=== PATIENT | male | born 1990 | race African-American/Black ===

== ENCOUNTER 2023-07-17 13:23 | Emergency (ER) | payer OTHER ==
[~2023-07-17] VITALS: Ht 190.5 cm; Wt 97.3 kg
[2023-07-17 13:32] VITALS: TEMP 97.3
[2023-07-17] MEDS: diazePAM 10MG/2ML SYRINGE IV ONE (14:24)
[2023-07-17] MEDS: KETOROLAC 30 MG/ML 1ML VIAL IV ONE (14:24)
[2023-07-17] MEDS ORDERED: CYCL5TAB PO (14:34)
[2023-07-17 15:45] VITALS: BP 116/69; O2SAT 98
== END 2023-07-17 16:21 | disposition home or self-care (01) ==
LOC: EDBD 13:23 → M ED 13:23
DX: M54.9 Dorsalgia, unspecified (principal)
CPT/HCPCS: 71046; 93005; 96374; 96375; 99284; J1885; J3360

== ENCOUNTER 2023-11-11 05:44 | Emergency (ER) | payer OTHER ==
[~2023-11-11] VITALS: Ht 190.5 cm; Wt 107.8 kg
[~2023-11-11 05:44] MED LIST: CYCL5TAB PO
[2023-11-11 05:45] VITALS: BP 135/76; TEMP 97.3; O2SAT 99
[2023-11-11] MEDS ORDERED: CETI-24 PO (07:22)
[2023-11-11] MEDS: CETIRIZINE (ZyrTEC) 10 MG TAB PO ONE (07:29)
[2023-11-11] MEDS: IBUPROFEN 800 MG TAB PO ONE (07:29)
== END 2023-11-11 07:34 | disposition home or self-care (01) ==
LOC: M ED 05:44
DX: H01.002 Unspecified blepharitis right lower eyelid (principal)

== ENCOUNTER 2024-02-04 05:42 | Emergency (ER) | payer OTHER ==
[~2024-02-04] VITALS: Ht 157.5 cm; Wt 61.7 kg
[~2024-02-04 05:42] MED LIST changes: +CETI-24 PO; -CYCL5TAB PO; +CYCL5TAB4 PO
[2024-02-04 06:08] LABS: BASO % 0.1 % (0.0-1.0); HEMATOCRIT 42.8 % (42.0-52.0); HEMOGLOBIN 15.5 g/dl (13.5-17.5); LYMPH # 1.5 10^3/uL (1.5-5.0); LYMPH % 9.9 % (24.0-44.0); MEAN CORPUSCULAR HGB CONC 36.2 g/dl (32.0-36.5); MONO # 0.5 10^3/uL (0.0-0.8); MONO % 3.4 % (2.0-8.0); NEUTROPHILS # 13.1 10^3/uL (1.5-8.5); NEUTROPHILS % 86.3 % (36.0-66.0); PLATELET COUNT, AUTOMATED 254 10^3/uL (150-450); RED BLOOD COUNT 5.35 10^6/uL (4.30-6.10); WHITE BLOOD COUNT 15.1 10^3/uL (4.0-10.0)
[2024-02-04 06:35] LABS: ALBUMIN 3.8 G/DL (3.2-5.2); BILIRUBIN,DIRECT 0.1 MG/DL (<0.4); BILIRUBIN,TOTAL 0.4 MG/DL (0.3-1.2); CK-MB VALUE MASS 1.2 NG/ML (<3.6); MB/CK RELATIVE INDEX 0.26 (< OR =4); TOTAL PROTEIN 8.1 G/DL (5.7-8.2)
[2024-02-04 07:29] LABS: MB/CK RELATIVE INDEX 0.23 (< OR =4)
[2024-02-04] MEDS ORDERED: ISOVUE-370 76% 100ML VIAL As Ordered ONE (08:20)
[2024-02-04] MEDS ORDERED: PROT1TAB2 PO (09:20)
[2024-02-04] MEDS ORDERED: CARA1TAB6 PO (09:21)
[2024-02-04 09:30] VITALS: BP 126/61; TEMP 97.7; O2SAT 96
== END 2024-02-04 09:47 | disposition home or self-care (01) ==
LOC: M ED 05:42
DX: K21.00 Gastro-esophageal reflux disease with esophagitis, without bleeding (principal); K76.0 Fatty (change of) liver, not elsewhere classified
CPT/HCPCS: 71045; 71275; 80047; 80076; 82550; 82553; 84484; 85025; 93005; 99284; Q9967

== ENCOUNTER → 2024-05-10 | Outpatient (REF) ==
[~2024-05-10] MED LIST changes: +CARA1TAB6 PO; +PROT1TAB2 PO
== END ==
LOC: M PLALAB 10:44 → M PLAIMG 10:44
PROVIDERS: ATTEND Internal Medicine
DX: R52 Pain, unspecified (principal)